=== PATIENT | female | born 1970 | race Caucasian/White ===

== ENCOUNTER → 2017-12-30 | Outpatient (CLI) | payer OTHER ==
--- NOTE | 2017-12-30 14:34 | XR ---
EXAMINATION TYPE: XR Hip Complete LT DATE OF EXAM: 12/30/2017 COMPARISON: NONE HISTORY: Pain TECHNIQUE: 2 views submitted FINDINGS: There is no evidence of erosive change or acute fracture. Joint space demonstrates mild concentric narrowing. Mild hypertrophic change of the acetabulum can be associated with femoral acetabular impingement. IMPRESSION: 1. No evidence of acute fracture or dislocation. 2. Arthropathy consider follow-up MRI.
--- NOTE | 2017-12-30 14:36 | XR ---
EXAM TYPE: LUMBAR SPINE X RAY SERIES COMPARISON: NONE HISTORY: Pain TECHNIQUE: 4 views are submitted. FINDINGS: Alignment is anatomic. The pedicles are intact. The transverse processes are intact. There is diff use osteopenia. No degenerative disc disease at levels L2-S1. There is a curvature the spine with a grade 1 anterolisthesis of L5 on S1. IMPRESSION: 1. Multilevel degenerative disc disease with grade 1 anterolisthesis L5 on S1. Consider MRI follow-up .
== END | disposition home or self-care (01) ==
LOC: RADXRYALE 13:43
PROVIDERS: ATTEND Nurse Practitioner Family
DX: M43.17 Spondylolisthesis, lumbosacral region (principal); M51.37 Other intervertebral disc degeneration, lumbosacral region; M16.12 Unilateral primary osteoarthritis, left hip
CPT/HCPCS: 72100; 73502

== ENCOUNTER 2019-11-06 08:41 | Day surgery (SDC) | payer BC ==
[2019-11-03 09:40] VITALS: BMI 26.4
[2019-11-06] MEDS: LACTATED RINGERS 1,000 ML IV SCH ×2 (09:33→10:11)
[2019-11-06 09:34] VITALS: TEMP 98.4
[2019-11-06] MEDS ORDERED: LIDOCAINE 1% (10MG/ML) FOR IV START INTRADERMA ONE (09:34)
[2019-11-06] MEDS ORDERED: PROPOFOL 10 MG/ML 20 ML VIAL IV ONE (10:27)
--- NOTE | 2019-11-06 11:09 | P.PCN ---
Date of Procedure: 11/06/19 Description of Procedure: BRIEF HISTORY: Patient is a 49-year-old female presenting for screening for malignant neoplasm of the colon with colonoscopy. No change in bowel habits, blood per rectum or abdominal pain. No prior colonoscopies. She does have a sister who was diagnosed with Juarez syndrome and a father who was diagnosed with colon cancer in his 60s. PROCEDURE PERFORMED: Colonoscopy with polypectomy. PREOPERATIVE DIAGNOSIS: Screening for malignant neoplasm of the colon, first degree relative with Juarez syndrome, family history of colon cancer, no prior colonoscopy. ESTIMATED BLOOD LOSS: Minimal. IV sedation per Anesthesia. PROCEDURE: After informed consent was obtained, the patient, was brought into the endoscopy unit. IV sedation was administered by Anesthesia under continuous monitoring. Digital rectal examination was normal. Initially the Olympus CF-190 flexible video colonoscope was then inserted in the rectum, gradually advanced into the cecum without any difficulty. Careful examination was performed as the scope was gradually being withdrawn. Ileocecal valve and the appendiceal orifice were visualized and appeared normal. Prep was excellent. Mucosa of the cecum, ascending colon, transverse colon, descending colon, sigmoid colon, and rectum appeared normal. Diminutive 2 mm cecal polyp removed with cold forcep polypectomy. Flat 4 mm hepatic flexure polyp removed with cold snare polypectomy. Diminutive 2 mm transverse colon polyp removed with cold forcep polypectomy. Retroflexion was performed in the rectum and no lesions were seen. The patient tolerated the procedure well. IMPRESSION: 2 diminutive polyps removed from the cecum and transverse colon with cold forcep polypectomy. Flat hepatic flexure polyp removed with cold snare polypectomy. RECOMMENDATIONS: Findings of this examination were discussed with the patient in her family. Okay to resume diet. Okay to resume medications. Await pathology from polypectomies. Would recommend repeat colonoscopy in 2 years given first degree relative with Juarez syndrome. Extensive discussion with the patient and she should try to seek counseling from a nurse sitter that she may benefit from testing for Juarez syndrome.
[2019-11-06 11:19] VITALS: RESP 16
[2019-11-06 11:24] VITALS: BP 101/64; PULSE 78
== END 2019-11-06 11:38 | disposition home or self-care (01) ==
LOC: ORWHC2ENDO 08:41
PROVIDERS: ATTEND Internal Medicine
DX: Z12.11 Encounter for screening for malignant neoplasm of colon (principal); K63.5 Polyp of colon; D12.3 Benign neoplasm of transverse colon; E78.5 Hyperlipidemia, unspecified; Z88.5 Allergy status to narcotic agent; Z87.891 Personal history of nicotine dependence; Z79.899 Other long term (current) drug therapy; Z98.890 Other specified postprocedural states; Z85.3 Personal history of malignant neoplasm of breast; Z87.898 Personal history of other specified conditions; Z84.81 Family history of carrier of genetic disease; Z80.0 Family history of malignant neoplasm of digestive organs
CPT/HCPCS: 88305; 84703; 45380; 45385; J2704

== ENCOUNTER → 2021-11-14 | Outpatient (CLI) | payer OTHER ==
--- NOTE | 2021-11-16 09:06 | XR ---
EXAMINATION TYPE: XR cervical spine limited DATE OF EXAM: 11/14/2021 3:44 PM INDICATION: Patient age:Female; 51 years old; Reason for study: M542 CERVICALGIA; COMPARISON: None TECHNIQUE: The cervical spine was imaged in frontal and lateral projections. FINDINGS: The osseous structures show normal alignment without evidence of an acute fracture. There are osteoph ytes noted throughout the cervical spine on the anterior and lateral aspects of the vertebral bodies. The intervertebral disk spaces are preserved. Pedicles are intact. Soft tissues are within normal limits. The odontoid appears intact. IMPRESSION: 1. No fracture or dislocation. 2. Mild degenerative disc disease changes of the cervical spine.
== END | disposition home or self-care (01) ==
LOC: RADXRYALE 15:35
PROVIDERS: ATTEND Nurse Practitioner
DX: M50.33 Other cervical disc degeneration, cervicothoracic region (principal)
CPT/HCPCS: 72040

== ENCOUNTER → 2021-12-15 | Outpatient (CLI) | payer OTHER ==
--- NOTE | 2021-12-16 08:26 | MM ---
Reason for Exam: Screening (asymptomatic). Last mammogram was performed 1 year(s) and 5 month(s) ago. Patient History: Breast cancer, right, age 38. 1997, Lumpectomy on the Right side. 2006, Lumpectomy on the Right side. 2006, Radiation Therapy on the right side. 2006, Chemotherapy. Mother had breast cancer, age 42. Sister had breast cancer, age 47. Brother had breast cancer, age 64. Prior Study Comparison: 01/04/2018 Bilateral MG screening mammo w CAD - 2, Unknown. 11/02/2018 Bilateral MG screening mammo w CAD - 2, Unknown. 07/22/2020 Bilateral MG 3D screening mammo w/cad, Unknown. 07/31/2020 Left MG work up mamm w CAD LT - 2, Unknown. Tissue Density: The breast tissue is heterogeneously dense. This may lower the sensitivity of mammography. Findings: Analyzed By CAD. Posttreatment changes changes on the right. There is no suspicious group of microcalcifications or new suspicious mass in either breast. Overall Assessment: Benign, BI-RAD 2 Management: Screening Mammogram of both breasts in 1 year. A clinical breast exam by your physician is recommended on an annual basis and results should be correlated with mammographic findings. Electronically signed and approved by: Garry Kay DO
== END | disposition home or self-care (01) ==
LOC: RADMAMWWP 13:16
PROVIDERS: ATTEND Family Medicine
DX: Z12.31 Encounter for screening mammogram for malignant neoplasm of breast (principal); Z80.3 Family history of malignant neoplasm of breast
CPT/HCPCS: 77063; 77067

== ENCOUNTER → 2023-03-26 | Outpatient (CLI) | payer OTHER ==
--- NOTE | 2023-03-26 10:56 | MM ---
Reason for Exam: Screening (asymptomatic). Last mammogram was performed 1 year(s) and 3 month(s) ago. Patient History: Menarche at age 12. First Full-Term at age 29. Late child-bearing (after 29). Postmenopausal. Breast cancer, right, age 38. 1997, Lumpectomy on the Right side. 2006, Lumpectomy on the Right side. 2006, Radiation Therapy on the right side. 2006, Chemotherapy. Mother had breast cancer, age 42. Sister had breast cancer, age 47. Brother had breast cancer, age 64. Prior Study Comparison: 07/22/2020 Bilateral MG 3D screening mammo w/cad, Unknown. 07/31/2020 Left MG work up mamm w CAD LT - 2, Unknown. 12/15/2021 Bilateral MG 3D screening mammo w/cad, [facility]. Tissue Density: The breast tissue is heterogeneously dense. This may lower the sensitivity of mammography. Findings: Analyzed By CAD. There is no suspicious group of microcalcifications or new suspicious mass in either breast. Benign calcifications within the left breast. There is no suspicious group of microcalcifications or new suspicious mass in either breast. Benign calcifications within the left breast. Posttreatment changes to the right breast. Overall Assessment: Benign, BI-RAD 2 Management: Screening Mammogram of both breasts in 1 year. A clinical breast exam by your physician is recommended on an annual basis and results should be correlated with mammographic findings. Electronically signed and approved by: Reddy Ovalles D.O.
== END | disposition home or self-care (01) ==
LOC: RADMAMWWP 10:10
PROVIDERS: ATTEND Family Medicine
DX: Z12.31 Encounter for screening mammogram for malignant neoplasm of breast (principal); Z78.0 Asymptomatic menopausal state; Z80.3 Family history of malignant neoplasm of breast; Z85.3 Personal history of malignant neoplasm of breast
CPT/HCPCS: 77063; 77067

== ENCOUNTER → 2024-03-27 | Outpatient (CLI) | payer OTHER ==
--- NOTE | 2024-04-02 17:14 | MM ---
Reason for Exam: Screening (asymptomatic). Last screening mammogram was performed 12 month(s) ago. Patient History: Menarche at age 12. First Full-Term at age 29. Late child-bearing (after 29). Postmenopausal. Patient has history of breast feeding. Breast cancer, right, age 38. Hormonal Contraceptives, from age 17 until age 36. 1997, Lumpectomy on the Right side. 2006, Lumpectomy on the Right side. 2006, Radiation Therapy on the right side. 2006, Chemotherapy. Mother had breast cancer, age 42. Sister had breast cancer, age 47. Brother had breast cancer, age 64. Prior Study Comparison: 07/31/2020 Left MG work up mamm w CAD LT - 2, Unknown. 12/15/2021 Bilateral MG 3D screening mammo w/cad, [facility]. 03/26/2023 Bilateral MG 3D screening mammo w/cad, [facility]. Tissue Density: There are scattered areas of fibroglandular density. Findings: Analyzed By CAD. The pattern is symmetrical. Multiple scattered calcifications in the left are present. Appears to be present previously. No suspicious cluster of calcifications evident. No suspicious groups of microcalcifications, spiculated or lobular masses, architectural distortion or other secondary signs of malignancy are mammographically apparent. Overall Assessment: Benign, BI-RAD 2 Management: Screening Mammogram of both breasts in 1 year. A negative mammogram report should not preclude additional follow up of suspicious palpable abnormalities. Patient should continue monthly self breast exam. A clinical breast exam by your physician is recommended on an annual basis and results should be correlated with mammographic findings. Note on Nelsy scores and lifetime risk: 1. A Nelsy score greater than 3% is considered moderate risk. If this is the case, consider specialist referral to assess eligibility for a risk reducing agent. 2. If overall lifetime risk for the development of breast cancer is 20% or higher, the patient may qualify for future screening with alternating mammogram and breast MRI. [facility], , 04/02/2024 5:11 PM. Electronically signed and approved by: Wisam Pratt D.O. Radiologis
== END | disposition home or self-care (01) ==
LOC: RADMAMWWP 10:38
PROVIDERS: ATTEND Family Medicine
DX: Z12.31 Encounter for screening mammogram for malignant neoplasm of breast (principal); R92.323 Mammographic fibroglandular density, bilateral breasts; Z80.3 Family history of malignant neoplasm of breast; Z78.0 Asymptomatic menopausal state
CPT/HCPCS: 77063; 77067